=== PATIENT | female | born 1985 | race Caucasian/White ===

== ENCOUNTER 2020-06-07 20:04 | Emergency (ER) | payer BC ==
[~2020-06-07] VITALS: Ht 160 cm; Wt 56.7 kg
== END 2020-06-07 23:40 | disposition home or self-care (01) ==
LOC: ER 20:04
DX: S93.491A Sprain of other ligament of right ankle, initial encounter (principal); W01.0XXA Fall on same level from slipping, tripping and stumbling without subsequent striking against object, initial encounter; Y93.89 Activity, other specified; Y92.413 State road as the place of occurrence of the external cause; Y99.8 Other external cause status